=== PATIENT | male | born 1930 | race Caucasian/White ===

== ENCOUNTER 2016-11-26 21:22 | Emergency (ER) | payer MEDICARE, SELFPAY ==
[2016-11-26] MEDS ORDERED: DILTIAZEM HCL 125 MG in 0.9 % SODIUM CHLORIDE 100ML 100 ML IV SCH (21:45)
[2016-11-26] MEDS ORDERED: 0.9 % SODIUM CHLORIDE 1000ML 500 ML IV SCH (21:45)
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
[2016-11-26 21:53] LABS: BASO % 0.4 % (0-6); EOS % 6.3 % (0-6); GRAN % 67.5 % (47-80); HEMATOCRIT 35.2 % (42.0-52.0); HEMOGLOBIN 11.8 gm/dl (14.0-18.0); LYMPH % 16.4 % (16-45); MEAN CELL VOLUME 91.2 fl (81-97); MEAN CORPUSCULAR HGB CONC 33.5 g/dl (32-36); MEAN PLATELET VOLUME 9.6 fl (7.4-10.4); MONO % 9.4 % (0-9); PLATELET COUNT 249 K/uL (130-400); RED BLOOD COUNT 3.86 M/uL (4.40-5.70)
[2016-11-26] MEDS ORDERED: ASPIRIN 81 MG CHEWABLE TABLET PO ONE (21:55)
[2016-11-26 21:57] LABS: MEAN CORPUSCULAR HEMOGLOBIN 30.5 pg (27-33)
[2016-11-26 22:06] LABS: INR 1.05; PROTHROMBIN TIME (PATIENT) 11.3 SECONDS (9.5-12.1)
[2016-11-26 22:30] LABS: ALB/GLOB RATIO 1.1 (1.1-1.8); ALBUMIN 3.9 gm/dL (3.5-5.0); ALKALINE PHOSPHATASE 81 U/L (38-126); ALT/SGPT 31 U/L (21-72); ANION GAP 12.4 (7-16); AST/SGOT 16 U/L (17-59); BILIRUBIN,TOTAL 0.42 mg/dL (0.2-1.3); BLOOD UREA NITROGEN 14 mg/dL (9-20); CARBON DIOXIDE 25.6 mmol/L (22-30); CREATINE PHOSPHOKINASE 41 U/L (55-170); CREATININE 0.8 mg/dL (0.66-1.25); EST GLOMERULAR FILTRATION RATE > 60 ml/min; GLUCOSE,RANDOM 138 mg/dL (70-110); TOTAL PROTEIN 7.4 gm/dL (6.3-8.2)
[2016-11-26 22:32] LABS: CKMB 1.2 ug/L (0-6); TROPONIN I < 0.012 ng/mL (0.00-0.034)
--- NOTE | 2016-11-28 11:25 | CT ANGIOGRAM REPORT ---
EXAM: CT ANGIOGRAM CHEST CTA w contrast HISTORY: HYPERTENSION, DIFFICULTY BREATHING. TECHNIQUE: CTA of the chest was performed after intravenous administration of 80 mL of Omnipaque-350 contrast material. Sagittal and coronal MIP images were performed on an independent workstation. FINDINGS: There is no mass or filling defect to suggest pulmonary embolism. The heart and pericardium appears normal. There is paraseptal and centrilobular emphysematous change. There is fibrosis in the lung bases. There is extensive mediastinal and hilar lymphadenopathy. There is a round mass in the left lower lobe measuring 9 cm x 9 cm. There is an 18 mm spiculated lesion in the lingular segment. The visualized superior abdominal structures demonstrate aneurysmal dilatation of the descending thoracic aorta. There is a 4 cm mass in the right cardiophrenic angle. IMPRESSION: 1. NO CTA FINDINGS SUGGESTIVE OF PULMONARY EMBOLISM. 2. EXTENSIVE MEDIASTINAL AND HILAR LYMPHADENOPATHY. SUSPICIOUS LESIONS IN THE LEFT LOWER LOBE, LINGULAR SEGMENT, AND THE RIGHT CARDIOPHRENIC ANGLE. 3. SEVERE UNDERLYING CENTRILOBULAR EMPHYSEMA WITH FIBROSIS IN THE LUNG BASES. 4. FUSIFORM ABDOMINAL AORTIC ANEURYSM MEASURING 4.5 CM AT THE LEVEL OF THE RENAL ARTERIES. JOB NUMBER: [id number] [facility]
== END 2016-11-27 00:09 | disposition short-term general hospital (02) ==
LOC: ER 21:22
DX: I48.0 Paroxysmal atrial fibrillation (principal); R91.8 Other nonspecific abnormal finding of lung field; R06.00 Dyspnea, unspecified; I10 Essential (primary) hypertension; J44.9 Chronic obstructive pulmonary disease, unspecified; F17.210 Nicotine dependence, cigarettes, uncomplicated
CPT/HCPCS: 99285 ×2; 96365; 96366; 82550; 83605; 85025; 85610; 82553; 84484; 80053; 71275; 93005; 93010; Q9967; J7030

== ENCOUNTER 2016-12-06 04:35 | Inpatient (IN) | payer MEDICARE ==
[2016-12-06] MEDS ORDERED: ONDANSETRON HCL IV 4 MG/2 ML VIAL IVP ONE (04:39)
[2016-12-06] MEDS ORDERED: 0.9 % SODIUM CHLORIDE 1000ML 1,000 ML IV SCH (04:45)
[2016-12-06] MEDS ORDERED: MORPHINE SULFATE 5 MG/ML PFS IVP ONE (04:51)
[2016-12-06 04:53] LABS: BASO % 0.4 % (0-6); EOS % 2.4 % (0-6); GRAN % 78.7 % (47-80); HEMATOCRIT 33.3 % (42.0-52.0); HEMOGLOBIN 11.2 gm/dl (14.0-18.0); LYMPH % 10.1 % (16-45); MEAN CORPUSCULAR HEMOGLOBIN 30.6 pg (27-33); MEAN CORPUSCULAR HGB CONC 33.6 g/dl (32-36); MONO % 8.4 % (0-9); PLATELET COUNT 335 K/uL (130-400); RED BLOOD COUNT 3.66 M/uL (4.40-5.70); RED CELL DISTRIBUTION WIDTH 14.2 % (11.5-14.5); WHITE BLOOD COUNT W/O DIFF 10.6 K/uL (4.2-12.2)
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
[2016-12-06 05:05] LABS: ALBUMIN 3.9 gm/dL (3.5-5.0); ALKALINE PHOSPHATASE 89 U/L (38-126); ALT/SGPT 33 U/L (21-72); ANION GAP 7.3 (7-16); AST/SGOT 21 U/L (17-59); BILIRUBIN,TOTAL 0.77 mg/dL (0.2-1.3); BLOOD UREA NITROGEN 14 mg/dL (9-20); CARBON DIOXIDE 24.7 mmol/L (22-30); CREATININE 0.8 mg/dL (0.66-1.25); EST GLOMERULAR FILTRATION RATE > 60 ml/min; GLUCOSE,RANDOM 167 mg/dL (70-110); LIPASE 24 U/L (23-300); TOTAL PROTEIN 7.7 gm/dL (6.3-8.2)
[2016-12-06] MEDS ORDERED: MORPHINE SULFATE 5 MG/ML PFS IVP PRN (07:36)
[2016-12-06] MEDS: 0.9 % SODIUM CHLORIDE 1000ML 1,000 ML IV PRN ×2 (07:40→17:49)
[2016-12-06] MEDS: AMLODIPINE BESYLATE 5MG TAB PO SCH (09:42)
[2016-12-06] MEDS: ATORVASTATIN 20 MG TABLET PO SCH (09:43)
[2016-12-06] MEDS ORDERED: Non-Formulary MISC (Atorvastatin Calcium [Atorvastatin Calcium] 40 MG) PO SCH (10:00)
[2016-12-06] MEDS ORDERED: UMECLIDINIUM BROMIDE (INCRUSE) 62.5MCG IH SCH (10:00)
[2016-12-06] MEDS ORDERED: Non-Formulary MISC (Amlodipine Besylate [Norvasc] 10 MG) PO SCH (10:00)
[2016-12-06] MEDS ORDERED: AMIODARONE HCL 200 MG TABLET PO SCH (10:30)
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
[2016-12-06] MEDS: MORPHINE SULFATE 15 MG TABLET.ER PO SCH ×2 (11:38→21:32)
--- NOTE | 2016-12-06 15:34 | CT SCAN REPORT ---
EXAM: CT SCAN ABDOMEN/PELVIS W CONTRAST HISTORY: ABDOMINAL PAIN SINCE 2300 ON 12/05/2016. KNOWN LUNG MASS. TECHNIQUE: Contrast-enhanced helical CT examination of the abdomen and pelvis is performed including delayed images through the kidneys with 90 mL of Omnipaque-300 utilized. COMPARISON: CT abdomen and pelvis with contrast dated 04/28/2005. CT angiogram of the chest dated 11/26/2016. FINDINGS: There is redemonstration of a centrally necrotic mass in the left lower lobe. As visualized, this measures approximately 6.6 x 8.4 cm and is suspicious for malignancy. There is new postobstructive atelectasis/pneumonia surrounding this mass. Additionally, there is redemonstration of a spiculated nodule within the lateral aspect of the lingula measuring 1.3 x 0.9 cm. This is also suspicious for malignancy. Incompletely imaged is low-density adenopathy within the gloria and along the right anterior heart border. That along the right anterior heart border measures 2.9 x 4.3 cm, not significantly changed. This is consistent with lymph node metastasis. The heart is mildly enlarged. There is calcification of the aortic valve and diffuse atherosclerosis of the visualized right coronary artery. No new suspicious focal abnormality is demonstrated within the liver, spleen, pancreas, nor kidneys. Bilateral adrenal gland masses are redemonstrated when compared to the recent CT chest examination. That on the right measures 2.9 x 2.5 cm and that on the left measures 2.3 x 1.6 cm. These are new since the 2006 examination and are suspicious for metastatic disease. There is a soft tissue density nodule adjacent to the anterior margin of the gastric body measuring 1.6 x 1.7 cm. This is not seen on the prior CT abdomen and pelvis examination. Additionally, there is a small soft tissue density nodule adjacent to the lateral margin of the mid to upper left kidney measuring 1.2 x 1.2 cm. This is also not visualized on prior CT abdomen and pelvis examination. These nodules may represent metastatic disease. The gallbladder is surgically absent. No gross biliary ductal dilatation is seen. There is redemonstration of an aortobi-iliac endograft in place. No definite evidence of endo leak. The [place] intrarenal abdominal aorta measures 4.7 x 5.1 cm. This appears less pronounced than on the 2006 examination. No new pelvis mass, lymphadenopathy, or free pelvic fluid is seen. There is diverticulosis of the left colon without evidence of diverticulitis. No gross bowel dilatation or bowel wall thickening. No intrinsic urinary bladder abnormality is seen. No lytic or blastic bone lesion visualized. IMPRESSION: 1. REDEMONSTRATION OF A CENTRALLY NECROTIC MASS WITHIN THE LEFT LOWER LOBE, INCOMPLETELY IMAGED, CONSISTENT WITH MALIGNANCY. THERE IS NEW ASSOCIATED POSTOBSTRUCTIVE ATELECTASIS/PNEUMONIA WITHIN THE VISUALIZED LEFT LOWER LOBE. 2. BILATERAL HILAR ADENOPATHY, INCOMPLETELY IMAGED, WELL REDEMONSTRATION OF A RIGHT PERICARDIAL MASS CONSISTENT WITH METASTATIC DISEASE. 3. BILATERAL ADRENAL GLAND MASSES REDEMONSTRATED SUSPICIOUS FOR METASTATIC DISEASE. TWO SMALL SOFT TISSUE DENSITY NODULES WITHIN THE LEFT UPPER QUADRANT, DESCRIBED ABOVE. AGAIN, METASTATIC DISEASE IS CONSIDERED. 4. AORTOBI-ILIAC ENDOGRAFT IN PLACE WITHOUT EVIDENCE OF ENDO LEAK. NOT MENTIONED ABOVE IS REDEMONSTRATION OF ECTASIA OF THE RIGHT COMMON ILIAC ARTERY MEASURING UP TO 3.3 CM IN DIAMETER. 5. STATUS POST CHOLECYSTECTOMY. 6. DIVERTICULOSIS OF THE DISTAL COLON WITHOUT EVIDENCE OF DIVERTICULITIS. 7. NOT MENTIONED ABOVE IS A POSSIBLE NONOBSTRUCTING CALCULUS IN THE MID RIGHT KIDNEY VERSUS VASCULAR CALCIFICATION MEASURING 4.4 MM IN DIAMETER. JOB NUMBER: [id number] [facility]
[2016-12-06] MEDS: SPIRIVA INH SCH (16:45)
[2016-12-06] MEDS ORDERED: ACETAMINOPHEN 500 MG TABLET PO PRN (17:31)
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
[2016-12-06] MEDS: METOPROLOL SUCC 25 MG TAB.ER PO SCH (21:32)
[2016-12-07] MEDS: ONDANSETRON HCL IV 4 MG/2 ML VIAL IVP PRN (03:58)
[2016-12-07 06:30] LABS: HEMATOCRIT 33.3 % (42.0-52.0); MEAN CELL VOLUME 90.7 fl (81-97); MEAN PLATELET VOLUME 9.1 fl (7.4-10.4); PLATELET COUNT 296 K/uL (130-400); RED BLOOD COUNT 3.67 M/uL (4.40-5.70); WHITE BLOOD COUNT W/O DIFF 9.5 K/uL (4.2-12.2)
[2016-12-07 06:34] LABS: MEAN CORPUSCULAR HEMOGLOBIN 29.9 pg (27-33)
[2016-12-07 06:42] LABS: PLATELET ESTIMATE NORMAL (NORMAL)
[2016-12-07] MEDS: SPIRIVA INH SCH (09:26)
[2016-12-07] MEDS: MORPHINE SULFATE 15 MG TABLET.ER PO SCH ×2 (10:39→21:21)
[2016-12-07] MEDS: ATORVASTATIN 20 MG TABLET PO SCH (10:40)
[2016-12-07] MEDS: RIVAROXABAN 15 MG TABLET PO SCH (10:41)
[2016-12-07] MEDS: AMLODIPINE BESYLATE 5MG TAB PO SCH (10:42)
[2016-12-07] MEDS: AMIODARONE HCL 200 MG TABLET PO SCH (10:42)
--- NOTE | 2016-12-07 11:15 | ULTRASOUND REPORT ---
EXAM: ULTRASOUND OF THE ABDOMEN COMPLETE HISTORY: ABDOMINAL PAIN. TECHNIQUE: Routine ultrasound examination of the abdomen was performed. Comparison: CT of the abdomen and pelvis with contrast dated 12/06/16 at 05:31. FINDINGS: The pancreatic body is visualized and normal in appearance. The pancreatic head and tail are obscured by overlying bowel gas. The pancreatic duct is visualized and is within the limits of normal in caliber. There is diffuse atherosclerosis. There is aneurysmal dilatation of the infrarenal abdominal aorta measuring 4.3 cm in maximum AP diameter and 5.2 cm in maximum transverse diameter of the aortobiiliac endograft demonstrated on prior day CT examination The intrahepatic IVC is patent. The liver is homogeneous in echotexture and there is no intra or extrahepatic biliary ductal dilatation with the common hepatic duct measuring 5.7 mm. The gallbladder is surgically absent. The spleen is not diagnostically visualized due to overlying bowel gas. Screening evaluation of the kidneys does not demonstrate hydronephrosis nor mass with the right kidney measuring 11.4 cm in length and the left kidney measuring 9.5 cm in length. There is moderate distention of the urinary bladder. The portal vein appears patent. IMPRESSION: 1. EXAM LIMITED BY BOWEL GAS WITH THE HEAD AND TAIL OF THE PANCREAS NOT DIAGNOSTICALLY VISUALIZED. THE SPLEEN IS ALSO NOT DIAGNOSTICALLY VISUALIZED DUE TO POOR SONOGRAPHIC WINDOW. 2. STATUS POST CHOLECYSTECTOMY. NO BILIARY DUCTAL DILATATION. NO HYDRONEPHROSIS. JOB NUMBER: [id number] [facility]
[2016-12-07] MEDS ORDERED: PANTOPRAZOLE SODIUM 40 MG TABLET PO ONE ×2 (11:16→16:15)
--- NOTE | 2016-12-07 13:15 | Physician Progress Note ---
Subjective - Date Date of Physician Progress Note: 12/07/16 - Subjective Location: Abdomen Radiation: Non-Radiating Severity scale (1-10): 5 Quality: Aching Consistency: Constant Improves with: Medication Associated symptoms: Denies other symptoms Objective - Multidiciplinary Team Multidiciplinary Team: OT, PT, Social Work - Vital Signs Vital Signs: Vital Signs - Last 24 Hrs Temp Pulse Pulse Pulse Resp BP BP 12/07/16 11:20 98.8 F 77 18 141/79 12/07/16 09:27 86 16 12/07/16 08:08 20 12/07/16 06:33 12/07/16 06:00 12/07/16 05:00 98.0 F 70 18 129/71 12/06/16 22:50 98.7 F 102 H 22 117/69 12/06/16 21:00 73 16 12/06/16 20:30 134 H 18 12/06/16 19:05 97.5 F L 79 19 124/71 12/06/16 16:46 84 18 Pulse Ox 12/07/16 11:20 79 L 12/07/16 09:27 92 L 12/07/16 08:08 12/07/16 06:33 96 12/07/16 06:00 84 L 12/07/16 05:00 95 12/06/16 22:50 94 L 12/06/16 21:00 12/06/16 20:30 96 12/06/16 19:05 95 12/06/16 16:46 - General General Appearance: Alert, Oriented x3, Cooperative, Moderate distress Limitations: No limitations - Head Head exam: Atraumatic, Normocephalic, Normal inspection Head exam detail: negative: Abrasion, Contusion, Frankel's sign, General tenderness, Hematoma, Laceration - Eye Eye exam: Normal appearance. negative: Conjunctival injection, Periorbital swelling, Periorbital tenderness, Scleral icterus - ENT ENT exam: Mucous membranes dry Ear exam: negative: Auricular hematoma, Auricular trauma Nasal Exam: negative: Active bleeding, Discharge, Dried blood, Sinus tenderness Mouth exam: negative: Drooling, Laceration, Tongue elevation - Neck Neck exam: Normal inspection. negative: Tenderness, Thyromegaly - Respiratory Respiratory exam: Normal lung sounds bilaterally. negative: Rhonchi, Stridor, Wheezes - Cardiovascular Cardiovascular Exam: Regular rate, Normal rhythm, Normal heart sounds - GI/Abdominal GI/Abdominal exam: Soft, Hypoactive bowel sounds, Other (no tenderness on examination of the R abdomen/thorax. ). negative: Distended, Rebound, Rigid, Tenderness - Rectal Rectal exam: Deferred - exam: Deferred - Extremities Extremities exam: Normal inspection. negative: Calf tenderness, Pedal edema, Tenderness - Back Back exam: Denies: CVA tenderness (R), CVA tenderness (L) - Neurological Neurological exam: Alert, Oriented X3. negative: Motor sensory deficit - Psychiatric Psychiatric exam: Normal affect, Normal mood - Skin Skin exam: negative: Abrasion Type of lesion: negative: abrasion Assessment and Plan - Assessment and Plan (1) Abdominal pain Plan: - CT abdomen/pelvis not suggestive of acute abdomen. US 12/07/16 was als negative for any acute abdominal pathology. - FOBT pending, resume xarelto dosing. - pain control with MS Contin 15mg BID, Tylenol 500mg PRN, docusate/senna, Protonix 40mg PO QD ordered. - currently tolerating clear liquids, patient encouraged to increase PO intake. - will consult GI is symptoms persist on PPI therapy. Current Visit: Yes Status: Acute Qualifiers: Abdominal location: right upper quadrant Qualified Code(s): R10.11 - Right upper quadrant pain Base Code: R10.9 - UNSPECIFIED ABDOMINAL PAIN (2) Atrial fibrillation Plan: - patient currently in atrial fibrillation on examination. ECG in ED showed A fib. + LBBB w/o any acute ischemic changes. - Toprolol XL 12.5mg, amiodarone 400mg QD, - CHADsVASC 4 , on Xarelto 15mg QD resumed this am. - PACs noted on telemetry, pt seen by cardiology yesterday and will reduce amiodarone as per recommendation. Current Visit: Yes Status: Acute Qualifiers: Atrial fibrillation type: chronic Qualified Code(s): I48.2 - Chronic atrial fibrillation Base Code: I48.91 - UNSPECIFIED ATRIAL FIBRILLATION (3) COPD (chronic obstructive pulmonary disease) Plan: - PFTs show FEV1 61%, mild obstructive defect. - titrate oxygen to keep sats > 92% - Albuterol nebs PRN, incentive spirometry - smoking cessation advised Current Visit: No Status: Acute Base Code: J44.9 - CHRONIC OBSTRUCTIVE PULMONARY DISEASE, UNSPECIFIED (4) Hypercholesteremia Plan: stable on Atrovastatin 40mg QD Current Visit: Yes Status: Acute Base Code: E78.00 - PURE HYPERCHOLESTEROLEMIA, UNSPECIFIED (5) Full code status Plan: Patient is full code at this time. I will discuss resuscitation code with patient and family. Current Visit: Yes Status: Acute Base Code: Z78.9 - OTHER SPECIFIED HEALTH STATUS - Disposition Disposition: Patient continues to complain of vague abdominal pain. We have initiated a trial of PPIs and will consult GI for recommendations due to his persistent symptoms. I have spoken to the patient's sons this afternoon and provided them updates as to their father's condition and plans. PT/OT evaluated: recs appreciated. SW to discuss home care nurse with family. Results - Labs Result Diagrams: 12/07/16 06:15 12/07/16 06:15 Labs Last 24 Hours: Laboratory Results - last 24 hr 12/07/16 12/07/16 06:15 06:15 WBC 9.5 RBC 3.67 L Hgb 11.0 L Hct 33.3 L MCV 90.7 MCH 29.9 MCHC 33.0 RDW 14.0 Plt Count 296 MPV 9.1 Neutrophils % 86.0 H Band Neutrophils % 1.0 Eosinophils % Not Reportable Basophils % Not Reportable Lymphocytes 8.0 L Monocytes 2.0 Platelet Estimate Normal RBC Morphology Normal Eosinophil Count 3.0 Sodium 131 L Potassium 3.8 Chloride 93 L Carbon Dioxide 25.0 Anion Gap 13.0 DVT/PE Assessment - Risk for VTE Risk for VTE: No Risk Level: High (Pt has A fib: On Xarelto 15mg QD) Risk Assessment Date: 12/06/16 Risk Assessment Time: 12:29 VTE Orders Placed or Will Be Placed: Yes - Active Medicaitons Current Medications: Current Medications Acetaminophen (Tylenol 500mg Tab) 500 mg PO Q4H PRN PRN Reason: Abdominal Pain Last Admin: 12/06/16 17:35 Dose: 500 mg Amiodarone HCl (Pacerone) 200 mg PO DAILY [facility] Last Admin: 12/07/16 10:42 Dose: 200 mg Amlodipine Besylate (Norvasc) 10 mg PO DAILY [facility] Last Admin: 12/07/16 10:42 Dose: 10 mg Atorvastatin Calcium (Lipitor) 40 mg PO DAILY [facility] Last Admin: 12/07/16 10:40 Dose: 40 mg Sodium Chloride () 1,000 mls @ 100 mls/hr IV .Q10H PRN PRN Reason: LARGE VOLUME IV Last Admin: 12/06/16 17:49 Dose: 100 mls/hr Metoprolol Succinate (Toprol Xl) 12.5 mg PO QHS [facility] Last Admin: 12/06/16 21:32 Dose: 12.5 mg Morphine Sulfate (Ms Contin) 15 mg PO BID [facility] Last Admin: 12/07/16 10:39 Dose: 15 mg Ondansetron HCl (Zofran) 4 mg IVP Q4H PRN PRN Reason: NAUSEA Last Admin: 12/07/16 03:58 Dose: 4 mg Patient Own Med: (Spiriva) 1 each INH DAILY [facility] Last Admin: 12/07/16 09:26 Dose: 1 each Rivaroxaban (Xarelto) 15 mg PO DAILY [facility] Last Admin: 12/07/16 10:41 Dose: 15 mg AMI Plan - Labs Result Diagrams: 12/07/16 06:15 12/07/16 06:15
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
[2016-12-07] MEDS: METOPROLOL SUCC 25 MG TAB.ER PO SCH (21:21)
[2016-12-08 05:23] LABS: BASO % 0.1 % (0-6); EOS % 2.3 % (0-6); GRAN % 79.2 % (47-80); HEMATOCRIT 33.6 % (42.0-52.0); HEMOGLOBIN 11.5 gm/dl (14.0-18.0); LYMPH % 8.8 % (16-45); MEAN CELL VOLUME 89.4 fl (81-97); MEAN CORPUSCULAR HEMOGLOBIN 30.5 pg (27-33); MEAN CORPUSCULAR HGB CONC 34.2 g/dl (32-36); MEAN PLATELET VOLUME 8.9 fl (7.4-10.4); MONO % 9.6 % (0-9); PLATELET COUNT 282 K/uL (130-400); RED BLOOD COUNT 3.76 M/uL (4.40-5.70); RED CELL DISTRIBUTION WIDTH 13.8 % (11.5-14.5)
[2016-12-08] MEDS: ONDANSETRON HCL IV 4 MG/2 ML VIAL IVP PRN (05:23)
[2016-12-08] MEDS: MORPHINE SULFATE 5 MG/ML PFS IVP PRN (05:23)
[2016-12-08 05:36] LABS: ALBUMIN 3.2 g/dL (4.0-5.0); ALKALINE PHOSPHATASE 78 U/L (40-129); ALT/SGPT 11 U/L (<41); AST/SGOT 14 U/L (10.0-50.0); BLOOD UREA NITROGEN 14.9 mg/dL (17.4-49.2); CKMB 3.2 ng/mL (<6.73); CREATININE 0.4 mg/dL (0.7-1.2); EST GLOMERULAR FILTRATION RATE > 60 mL/min; GLUCOSE,RANDOM 113 mg/dL (74-109); TOTAL PROTEIN 6.5 g/dL (6.6-8.7); TROPONIN I < 0.30 ng/mL (0.00-0.300)
[2016-12-08] MEDS: PANTOPRAZOLE SODIUM 40 MG TABLET PO SCH (06:13)
--- NOTE | 2016-12-08 08:06 | RADIOLOGY REPORT ---
EXAM: PORTABLE CHEST HISTORY: CHEST PAIN. TECHNIQUE: A single mobile semi-erect view of the chest was obtained. Comparison: CT angiogram of the chest dated 11/26/16. Two view chest radiographic examination dated 11/12/16. CT of the abdomen and pelvis with contrast dated 12/06/16. FINDINGS: The cardiac silhouette projects mildly enlarged with borderline pulmonary venous hypertension. The thoracic aorta is tortuous and atherosclerotic. A large mass is again noted at the level of the left hilum/ perihilar region and there has been interval worsening or air space disease in the left lung base consistent with atelectasis or infiltrate. Minor patchy opacities in the right base are now identified superimposed on chronic interstitial change consistent with atelectasis or less likely infiltrate. No gross costophrenic angle blunting or pneumothorax. IMPRESSION: 1. CARDIOMEGALY WITH BORDERLINE PULMONARY VENOUS HYPERTENSION. 2. LARGE MASS REDEMONSTRATED IN THE LEFT PERIHILAR REGION WITH INTERVAL WORSENING OF AIR SPACE DISEASE IN THE LEFT BASE CONSISTENT WITH ATELECTASIS OR INFILTRATE. 3. NEW MINOR PATCHY OPACITIES WITHIN THE RIGHT BASE SUPERIMPOSED ON CHRONIC INTERSTITIAL CHANGES CONSISTENT WITH ATELECTASIS OR LESS LIKELY INFILTRATE. JOB NUMBER: [id number] MTDD
[2016-12-08] MEDS: SPIRIVA INH SCH (09:18)
[2016-12-08] MEDS: MORPHINE SULFATE 15 MG TABLET.ER PO SCH ×2 (09:31→22:23)
[2016-12-08] MEDS: AMIODARONE HCL 200 MG TABLET PO SCH (09:32)
[2016-12-08] MEDS: ATORVASTATIN 20 MG TABLET PO SCH (09:32)
[2016-12-08] MEDS: AMLODIPINE BESYLATE 5MG TAB PO SCH (09:32)
[2016-12-08] MEDS: RIVAROXABAN 15 MG TABLET PO SCH (09:32)
[2016-12-08] MEDS: 0.9 % SODIUM CHLORIDE 1000ML 1,000 ML IV PRN ×2 (11:38→22:33)
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
--- NOTE | 2016-12-08 15:42 | Physician Progress Note ---
Subjective - Date Date of Physician Progress Note: 12/09/16 - Subjective Location: Abdomen Severity scale (1-10): 5 Quality: Aching Consistency: Intermittent Improves with: Medication Worsens with: None Objective - Multidiciplinary Team Multidiciplinary Team: OT, PT, Social Work - Vital Signs Vital Signs: Vital Signs - Last 24 Hrs Temp Pulse Pulse Pulse Pulse Resp BP 12/08/16 14:50 97.5 F L 98 H 16 102/68 12/08/16 10:00 97.6 F 104 H 18 103/65 12/08/16 09:23 70 15 12/08/16 09:22 70 15 12/08/16 09:00 90 18 12/08/16 06:00 89 22 128/79 12/08/16 05:00 98.7 F 96 H 22 94/56 12/07/16 21:30 98.8 F 80 18 135/78 12/07/16 21:00 73 73 18 Pulse Ox 12/08/16 14:50 94 L 12/08/16 10:00 96 12/08/16 09:23 91 L 12/08/16 09:22 91 L 12/08/16 09:00 12/08/16 06:00 98 12/08/16 05:00 91 L 12/07/16 21:30 95 12/07/16 21:00 - General General Appearance: Alert, Oriented x3, Cooperative, Moderate distress Limitations: No limitations - Head Head exam: Atraumatic, Normocephalic, Normal inspection Head exam detail: negative: Abrasion, Contusion, Frankel's sign, General tenderness, Hematoma, Laceration - Eye Eye exam: Normal appearance. negative: Conjunctival injection, Periorbital swelling, Periorbital tenderness, Scleral icterus - ENT ENT exam: Mucous membranes dry Ear exam: negative: Auricular hematoma, Auricular trauma Nasal Exam: negative: Active bleeding, Discharge, Dried blood, Sinus tenderness Mouth exam: negative: Drooling, Laceration, Tongue elevation - Neck Neck exam: Normal inspection. negative: Tenderness, Thyromegaly - Respiratory Respiratory exam: Normal lung sounds bilaterally. negative: Rhonchi, Stridor, Wheezes - Cardiovascular Cardiovascular Exam: Regular rate, Normal rhythm, Normal heart sounds - GI/Abdominal GI/Abdominal exam: Soft, Hypoactive bowel sounds, Other (no tenderness on examination of the R abdomen/thorax. ). negative: Distended, Rebound, Rigid, Tenderness - Rectal Rectal exam: Deferred - exam: Deferred - Extremities Extremities exam: Normal inspection. negative: Calf tenderness, Pedal edema, Tenderness - Back Back exam: Denies: CVA tenderness (R), CVA tenderness (L) - Neurological Neurological exam: Alert, Oriented X3. negative: Motor sensory deficit - Psychiatric Psychiatric exam: Normal affect, Normal mood - Skin Skin exam: negative: Abrasion Type of lesion: negative: abrasion Assessment and Plan - Assessment and Plan (1) Abdominal pain Plan: - CT abdomen/pelvis not suggestive of acute abdomen. US 12/07/16 was also negative for any acute abdominal pathology. - on MS Contin 15mg BID, morphine 4mg IVP Q4H, docusate/senna, Protonix 40mg PO QD. - currently tolerating full liquids. 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 Current Visit: Yes Status: Acute Qualifiers: Abdominal location: right upper quadrant Qualified Code(s): R10.11 - Right upper quadrant pain Base Code: R10.9 - UNSPECIFIED ABDOMINAL PAIN (2) Atrial fibrillation Plan: - patient currently in atrial fibrillation on examination. ECG in ED showed A fib. + LBBB w/o any acute ischemic changes. - Toprolol XL 12.5mg, amiodarone 200mg BID, - CHADsVASC 4 , on Xarelto 15mg QD - ECG shows a fib w/ variable conduction and underlying LBBB. Current Visit: Yes Status: Acute Qualifiers: Atrial fibrillation type: chronic Qualified Code(s): I48.2 - Chronic atrial fibrillation Base Code: I48.91 - UNSPECIFIED ATRIAL FIBRILLATION (3) COPD (chronic obstructive pulmonary disease) Plan: - PFTs show FEV1 61%, mild obstructive defect. - titrate oxygen to keep sats > 92% - Albuterol nebs PRN, incentive spirometry - smoking cessation Current Visit: No Status: Acute Base Code: J44.9 - CHRONIC OBSTRUCTIVE PULMONARY DISEASE, UNSPECIFIED (4) Hypercholesteremia Current Visit: Yes Status: Acute Base Code: E78.00 - PURE HYPERCHOLESTEROLEMIA, UNSPECIFIED (5) Full code status Plan: Patient is full code at this time. I will discuss resuscitation code with patient and family. Current Visit: Yes Status: Acute Base Code: Z78.9 - OTHER SPECIFIED HEALTH STATUS - Disposition Disposition: I have spoken to the patient's family this afternoon and provided them updates as to their father's condition and plans. His daughter has been made aware of a preliminary diagnosis of adenocarcinoma of the lung by his ultrasonic welding machine operator Dr. Leo champagne at [facility] and arrangements have been made for oncoology f/u there. In the meantime she would like for her father to [facility] to [facility] before going home as he will need ongoing support once discharged. Possible D/C today if bed available. Results - Labs Result Diagrams: 12/08/16 05:17 12/08/16 05:17 Labs Last 24 Hours: Laboratory Results - last 24 hr 12/08/16 12/08/16 12/08/16 05:13 05:17 05:17 WBC 10.0 RBC 3.76 L Hgb 11.5 L Hct 33.6 L MCV 89.4 MCH 30.5 MCHC 34.2 RDW 13.8 Plt Count 282 MPV 8.9 Gran % 79.2 Lymphocytes % 8.8 L Monocytes % 9.6 H Eosinophils % 2.3 Basophils % 0.1 Sodium 128 L Potassium 3.8 Chloride 92 L Carbon Dioxide 23.0 Anion Gap 13.0 BUN 14.9 L Creatinine 0.4 L Estimated GFR > 60 Random Glucose 113 H Calcium 8.1 L Total Bilirubin 0.40 AST 14 ALT 11 Alkaline Phosphatase 78 CK-MB (CK-2) Cancelled 3.2 Troponin I < 0.30 Total Protein 6.5 L Albumin 3.2 L Globulin 3.3 Albumin/Globulin Ratio 1.0 L DVT/PE Assessment - Risk for VTE Risk for VTE: No Risk Level: High (Pt has A fib: On Xarelto 15mg QD) Risk Assessment Date: 12/06/16 Risk Assessment Time: 12:29 VTE Orders Placed or Will Be Placed: Yes - Active Medicaitons Current Medications: Current Medications Acetaminophen (Tylenol 500mg Tab) 500 mg PO Q4H PRN PRN Reason: Abdominal Pain Last Admin: 12/06/16 17:35 Dose: 500 mg Amiodarone HCl (Pacerone) 200 mg PO DAILY AJ Last Admin: 12/08/16 09:32 Dose: 200 mg Amlodipine Besylate (Norvasc) 10 mg PO DAILY [facility] Last Admin: 12/08/16 09:32 Dose: 10 mg Atorvastatin Calcium (Lipitor) 40 mg PO DAILY [facility] Last Admin: 12/08/16 09:32 Dose: 40 mg Sodium Chloride () 1,000 mls @ 100 mls/hr IV .Q10H PRN PRN Reason: LARGE VOLUME IV Last Admin: 12/08/16 11:38 Dose: 100 mls/hr Metoprolol Succinate (Toprol Xl) 12.5 mg PO QHS [facility] Last Admin: 12/07/16 21:21 Dose: 12.5 mg Morphine Sulfate (Ms Contin) 15 mg PO BID [facility] Last Admin: 12/08/16 09:31 Dose: 15 mg Morphine Sulfate (Morphine Sulfate) 2 mg IVP Q4HR PRN PRN Reason: Pain - Moderate (5-7) Stop: 12/15/16 05:16 Last Admin: 12/08/16 05:23 Dose: 2 mg Ondansetron HCl (Zofran) 4 mg IVP Q4H PRN PRN Reason: NAUSEA Last Admin: 12/08/16 05:23 Dose: 4 mg [facility]opraz[facility]) [facility] Last Admin: 12/08/16 06:13 Dose: 40 mg Patient Own Med: (Spiriva) 1 each INH DAILY [facility] Last Admin: 12/08/16 09:18 Dose: 1 each Rivaroxaban (Xarelto) 15 mg PO DAILY [facility] Last Admin: 12/08/16 09:32 Dose: 15 mg AMI Plan - Labs Result Diagrams: 12/08/16 05:17 12/08/16 05:17
--- NOTE | 2016-12-08 17:26 | Physical Therapy Tx Note ---
Physical Therapy Tx Note - Treatment Note Tolerated: Fair Total Time Spent With Patient: 15 Physical Therapy Tx Note: Detail (Patient was sidelying in bed sleeping when [employer] arrived. Patient states not feeling well. Patient transferred sit to supine independently. Patient transferred sit to and from stand CGA x1. Patient ambulated 62 feet without assistive device pulling 4L portable oxygen CGA x1 assist needed to propel IV pole. Patient transferred sit to supine independently. Patient declined further exercises. Patient was left sidelying in bed with call light with 4L oxygen, IV, and call light within reach.) Physical Therapy Problem List: Detail (1) Moderate risk for fall as measured by Tinetti Balance Assessment Tool. 2) Decreased ability to complete sustained physical activity.) Physical Therapy Goals: 1) Improve the patient's balance using the Tinetti Assessment Tool by 3 to 4 points. 2) The patient will ambulate with or without assistive device community distances with normal gait pattern. 3) The patient will tolerate 20 to 30 minutes of physical activity with one rest period. Prognosis: Good Physical Therapy Plan: PT one time a day M-F for ambulation , muscular endurance exercises and balance exercises.
[2016-12-08] MEDS: METOPROLOL SUCC 25 MG TAB.ER PO SCH (22:24)
[2016-12-08] MEDS: 0.9 % SODIUM CHLORIDE 1000ML 500 ML IV ONE (23:10)
[2016-12-09] MEDS: PANTOPRAZOLE SODIUM 40 MG TABLET PO SCH (06:22)
[2016-12-09] MEDS: AMIODARONE HCL 200 MG TABLET PO SCH (09:35)
[2016-12-09] MEDS: ATORVASTATIN 20 MG TABLET PO SCH (09:35)
[2016-12-09] MEDS: AMLODIPINE BESYLATE 5MG TAB PO SCH (09:35)
[2016-12-09] MEDS: MORPHINE SULFATE 15 MG TABLET.ER PO SCH ×2 (09:36→22:15)
[2016-12-09] MEDS: RIVAROXABAN 15 MG TABLET PO SCH (09:36)
[2016-12-09] MEDS: SPIRIVA INH SCH (10:07)
[2016-12-09] MEDS: 0.9 % SODIUM CHLORIDE 1000ML 1,000 ML IV PRN (19:07)
[2016-12-09] MEDS: 0.9 % SODIUM CHLORIDE 1000ML 500 ML IV ONE (19:51)
[2016-12-09] MEDS: METOPROLOL SUCC 25 MG TAB.ER PO SCH (22:15)
[2016-12-10] MEDS: MORPHINE SULFATE 5 MG/ML PFS IVP PRN (01:30)
[2016-12-10] MEDS: 0.9 % SODIUM CHLORIDE 1000ML 1,000 ML IV PRN (06:40)
[2016-12-10] MEDS: PANTOPRAZOLE SODIUM 40 MG TABLET PO SCH (06:40)
[2016-12-10] MEDS: AMIODARONE HCL 200 MG TABLET PO SCH (09:56)
[2016-12-10] MEDS: RIVAROXABAN 15 MG TABLET PO SCH (09:56)
[2016-12-10] MEDS: MORPHINE SULFATE 15 MG TABLET.ER PO SCH (09:56)
[2016-12-10] MEDS: ATORVASTATIN 20 MG TABLET PO SCH (09:56)
[2016-12-10] MEDS: AMLODIPINE BESYLATE 5MG TAB PO SCH (09:57)
[2016-12-10] MEDS: SPIRIVA INH SCH (10:02)
--- NOTE | 2016-12-10 11:26 | Discharge Summary ---
Providers Discharge Summary Date: 12/10/16 Date of admission: 12/06/16 07:25 Attending physician: JU SLOAN Primary care physician: CASSIE JACKSON D.O. 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?: Ricci Comment: Devi Physical Exam - Vital Signs Vital Signs: Vital Signs - Last 24 Hrs Temp Pulse Pulse Pulse Pulse Resp BP 12/10/16 10:03 75 19 12/10/16 10:00 97.6 F 90 18 108/54 12/10/16 08:37 113 H 113 H 20 12/10/16 06:00 97.4 F L 102 H 20 104/71 12/10/16 01:33 97.9 F 84 20 95/64 12/09/16 22:00 97.8 F 100 H 20 113/72 12/09/16 21:00 100 H 20 12/09/16 18:00 97.9 F 94 H 18 116/69 12/09/16 14:00 98.0 F 82 18 106/62 Pulse Ox 12/10/16 10:03 95 12/10/16 10:00 93 L 12/10/16 08:37 12/10/16 06:00 92 L 12/10/16 01:33 90 L 12/09/16 22:00 94 L 12/09/16 21:00 12/09/16 18:00 93 L 12/09/16 14:00 91 L - General General Appearance: Alert, Oriented x3, Cooperative, Moderate distress Limitations: No limitations - Head Head exam: Atraumatic, Normocephalic, Normal inspection Head exam detail: negative: Abrasion, Contusion, Frankel's sign, General tenderness, Hematoma, Laceration - Eye Eye exam: Normal appearance. negative: Conjunctival injection, Periorbital swelling, Periorbital tenderness, Scleral icterus - ENT ENT exam: Mucous membranes dry Ear exam: negative: Auricular hematoma, Auricular trauma Nasal Exam: negative: Active bleeding, Discharge, Dried blood, Sinus tenderness Mouth exam: negative: Drooling, Laceration, Tongue elevation - Neck Neck exam: Normal inspection. negative: Tenderness, Thyromegaly - Respiratory Respiratory exam: Normal lung sounds bilaterally. negative: Rhonchi, Stridor, Wheezes - Cardiovascular Cardiovascular Exam: Normal rhythm, Normal heart sounds. negative: Regular rate (the patient has paroxyms of atrial fibrillation.) - GI/Abdominal GI/Abdominal exam: Soft, Hypoactive bowel sounds, Other (no tenderness on examination of the R abdomen/thorax. ). negative: Distended, Rebound, Rigid, Tenderness - Rectal Rectal exam: Deferred - exam: Deferred - Extremities Extremities exam: Normal inspection. negative: Calf tenderness, Pedal edema, Tenderness - Back Back exam: Denies: CVA tenderness (R), CVA tenderness (L) - Neurological Neurological exam: Alert, Oriented X3. negative: Motor sensory deficit - Psychiatric Psychiatric exam: Normal affect, Normal mood - Skin Skin exam: negative: Abrasion Type of lesion: negative: abrasion Hospitalization - Hospitalization Admission Diagnosis: Abdominal pain. Atrial Fibrillation. Nausea/vomiting. Lung lesion - Problem List/Discharge Diagnosis (1) Abdominal pain Plan: - CT abdomen/pelvis not suggestive of acute abdomen. US 12/07/16 was also negative for any acute abdominal pathology. - on MS Contin 15mg BID, morphine 4mg IVP Q4H, docusate/senna, Protonix 40mg PO QD. - currently tolerating full liquids. 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 Status: Acute Discharge Diagnosis: Abdominal location: right upper quadrant Qualified Code(s): R10.11 - Right upper quadrant pain Base Code: R10.9 - UNSPECIFIED ABDOMINAL PAIN Narrative Support Text: Pain likely referred from thoracic area as there is no clear GI source (2) Atrial fibrillation Plan: - in sinus at this time . ECG in ED showed A fib. + LBBB w/o any acute ischemic changes. - Toprolol XL 12.5mg, amiodarone 200mg BID - CHADsVASC 4 , on Xarelto 15mg QD - ECG shows a fib w/ variable conduction and underlying LBBB. Status: Acute Discharge Diagnosis: Atrial fibrillation type: chronic Qualified Code(s): I48.2 - Chronic atrial fibrillation Base Code: I48.91 - UNSPECIFIED ATRIAL FIBRILLATION (3) COPD (chronic obstructive pulmonary disease) Status: Chronic Discharge Diagnosis: COPD type: emphysema Base Code: J44.9 - CHRONIC OBSTRUCTIVE PULMONARY DISEASE, UNSPECIFIED (4) Hypercholesteremia Status: Chronic Base Code: E78.00 - PURE HYPERCHOLESTEROLEMIA, UNSPECIFIED (5) Full code status Plan: The patient has an advanced directive which notes his daughter and son as POA. The patient also wants resuscitation in the event of cardiac or respiratory arrest but does not want a prolongation of life via support measures. Status: Acute Base Code: Z78.9 - OTHER SPECIFIED HEALTH STATUS - Disposition I have spoken to the patient's family this morning and they are agreeable to a swing bed until the outpatient services can accomodate further workup for his lung ca. - Hospitalization Course Disposition: Moved to Swing Bed Hospital Course: Mr. Cullen is an 86 y/o male who presents with acute abdominal/thoracic pain which has been intermittent and ongoing for the past 2 weeks. He has always had some abdominal discomfort due to GERD but symptoms have progressed and he has had 20lb weight loss and loss of appetite over the past 4-5 months. On presentation to the ED the patient had severe abdominal tenderness and had complete loss of appetite. Abdominal CT and US showed stable AAA graft and no acute abdominal findings. The patient was started on Morphine IV, Nacl 0.9% 100mL/hr and PPI. Initially there was suspiscion for acute GI bleed due to xarelto use but the patient remained hemodynamically stable throughout. The patient has a recent diagnosis of atrial fibrillation w/ a high CHADSVASc2 score and he was most recently started on xarelto for emboli prevention and amiodarone for better rate control. Procedures: Imaging and X-Rays 12/07/16 07:30 ABDOMEN, COMPLETE [US] Stat 12/08/16 05:11 CHEST AP or PA ONLY [RAD] Stat Cardiology Procedures 12/08/16 04:42 EKG NOW Abnormal Labs: Abnormal Lab Results 12/07/16 12/07/16 12/08/16 Range/Units 06:15 06:15 05:17 RBC 3.67 L (4.40-5.70) M/uL Hgb 11.0 L (14.0-18.0) gm/dl Hct 33.3 L (42.0-52.0) % Neutrophils % 86.0 H (47-80) % Lymphocytes % (16-45) % Monocytes % (0-9) % Lymphocytes 8.0 L (16-45) % Sodium 131 L 128 L (136-145) mmol/L Chloride 93 L 92 L (98-107) mmol/L BUN 14.9 L (17.4-49.2) mg/dL Creatinine 0.4 L (0.7-1.2) mg/dL Random Glucose 113 H (74-109) mg/dL Calcium 8.1 L (8.8-10.2) mg/dL Total Protein 6.5 L (6.6-8.7) g/dL Albumin 3.2 L (4.0-5.0) g/dL Albumin/Globulin Ratio 1.0 L (1.1-1.8) 12/08/16 Range/Units 05:17 RBC 3.76 L (4.40-5.70) M/uL Hgb 11.5 L (14.0-18.0) gm/dl Hct 33.6 L (42.0-52.0) % Neutrophils % (47-80) % Lymphocytes % 8.8 L (16-45) % Monocytes % 9.6 H (0-9) % Lymphocytes (16-45) % Sodium (136-145) mmol/L Chloride (98-107) mmol/L BUN (17.4-49.2) mg/dL Creatinine (0.7-1.2) mg/dL Random Glucose (74-109) mg/dL Calcium (8.8-10.2) mg/dL Total Protein (6.6-8.7) g/dL Albumin (4.0-5.0) g/dL Albumin/Globulin Ratio (1.1-1.8) Condition at Discharge: (2) Stable VTE Discharge VTE Reason For No Overlap Therapy: Not Indicated Discharge Medications - Discharge Medications Home Medications: Ambulatory Orders Amlodipine Besylate [Norvasc] 10 mg PO DAILY 09/09/13 [Last Taken 1 Day Ago ~] Metoprolol Succinate [Toprol Xl] 12.5 mg PO QHS #30 tab.er.24h 05/21/14 [Last Taken 1 Day Ago ~01/23/15] Tiotropium [place] [Spiriva] 1 cap INH RESP.DAILY cap.w[facility]dev 01/28/15 [Last Taken Unknown] Atorvastatin Calcium 40 mg PO DAILY 11/26/16 [Last Taken Unknown] Amiodarone HCl [Pacerone] 200 mg PO BID 12/06/16 [Last Taken Unknown] Rivaroxaban [Xarelto] 15 mg PO DAILY 12/06/16 [Last Taken Unknown] Discharge Plan - Discharge Instructions Activity at Discharge: Resume Usual Activities As Tolerated Diet at Discharge: Regular Diet Quality Measures - Quality Measures Quality Measures: Atrial Fibrillation & Atrial Flutter: Chronic Anticoagulation Therapy, Advance Directives, Documentation of Current Medications in Medical Record, Elder Maltreatment Screen and Follow-Up Plan, Screening for High Blood Pressure and F/U Documented - Current Medications Quality Measure: Measure #130: Documentation of Current Medications Documentation of Current Medications: <Current Medications Documented/Reviewed> [G8461] - Blood Pressure Screening Quality Measure: Screening for High Blood Pressure and Follow-Up Documented Does Patient Have Any of the Following: Active Dx of HTN Blood Pressure Classification: Pre-Hypertensive BP Reading Systolic Measurement: 120 Diastolic Measurement: 77 Screening for High Blood Pressure: Patient Exclusion, Hx of HTN [G9744] - Atrial Fibrillation and Atrial Flutter Quality Measure: Atrial Fibrillation & Atrial Flutter: Chronic Anticoagulation Therapy Does Patient Have Any of the Following: No CHADS2 Risk Stratification: Age 75 or Greater, Hypertension Risk Stratification Summary: One or more high risk factors OR more than one moderate risk factor exists. [G8972] Anticoagulation Therapy: <Oral anticoagulant Prescribed> [G8967] - Advance Directives Quality Measure: Measure #47: Care Plan Advance Directives Established: Yes Advance Directives Information Provided To Patient: No Advance Directives on File: No Living Will: No Power of Student Affairs Vice President: Yes (HARSHAL CULLEN) Advance Care Planning: <Care Plan/Decision Maker Documented; Discussed & Documented> [2433F] - Elder Abuse Suspicion Index Screening: Elder Abuse Suspicion Index Screening Rely on people for bathing, dressing, shopping, banking, etc: No Prevented from getting food, clothes, medication, etc: No Made to feel shamed or threatened by someone: No Forced to sign papers or use money against will: No Feel afraid, touched in ways not wanted or hurt physically: Did Not Answer Poor eye contact, withdrawn, malnourished, cuts or bruises: Did Not Answer Screening Result: Negative result EASI Reference Information: Rehan DIAZ, Steven C, Michelle D, Master Card.Development and validation of a tool to assist physicians identification of elder abuse: The Elder Abuse Suspicion Index (EASI ). Journal of Elder Abuse and Neglect, 2008; 20 (3): 276-300. - Elder Maltreatment Screen Quality Measures: Elder Maltreatment Screen and Follow-Up Plan Elder Maltreatment Screen: <Negative, No Follow-Up Plan Required> [G8734]
--- NOTE | 2016-12-10 13:39 | Physical Therapy Tx Note ---
Physical Therapy Tx Note - Treatment Note Tolerated: Good Total Time Spent With Patient: 25 Physical Therapy Tx Note: Detail (The patient was sleeping in bed when PT arrived but easily awoken. The patient ambulated with 5 L of O2 and no assistive device with CG for safety a distance of 60 feet x 1. The patient had complaints of low back and shoulder pain. The patient completed low back exercises including anterior/posterior tilt, prayer stretch, shoulder circles, scapular squeezes, diaphramtic breathing, 5 - 10 reps, seated marching, LAQ x 10 reps. The patient had some complaints of fatigue following treatment.) Physical Therapy Problem List: Detail (1) Moderate risk for fall as measured by Tinetti Balance Assessment Tool. 2) Decreased ability to complete sustained physical activity.) Physical Therapy Goals: 1) Improve the patient's balance using the Tinetti Assessment Tool by 3 to 4 points. 2) The patient will ambulate with or without assistive device community distances with normal gait pattern. 3) The patient will tolerate 20 to 30 minutes of physical activity with one rest period. Physical Therapy Plan: PT one time a day M-F for ambulation , muscular endurance exercises and balance exercises.
== END 2016-12-10 14:13 | disposition swing bed (61) | DRG 181 ==
LOC: ER 04:35 → MEDSURG 07:25 → OBSVTOIN 07:25 → MEDSURG 12-07 07:55
PROVIDERS: ADMIT Family Medicine; ATTEND Family Medicine
DX: R10.11 Right upper quadrant pain (principal); C34.32 Malignant neoplasm of lower lobe, left bronchus or lung; C77.3 Secondary and unspecified malignant neoplasm of axilla and upper limb lymph nodes; R91.1 Solitary pulmonary nodule; I48.2 Chronic atrial fibrillation; Z79.01 Long term (current) use of anticoagulants; F32.9 Major depressive disorder, single episode, unspecified; J44.9 Chronic obstructive pulmonary disease, unspecified; E78.00 Pure hypercholesterolemia, unspecified; Z78.9 Other specified health status
CPT/HCPCS: 83605; 83690; 85025; 80053; 74177; 93005; 93010; Q9967; J2405; J2270; 71010; 76700; 80051; 82553; 84484; 85027; 93041; 94620; 94640; 94760; 94761; 96374; 96375; 97110; 97165; 97530; 99223; 99232; 99239; 99285; J7030

== ENCOUNTER 2016-12-10 06:20 | Inpatient (IN) | payer MEDICARE ==
[2016-12-10] MEDS ORDERED: HYDROCODONE/APAP 5/325MG TABLET PO PRN (15:32)
[2016-12-10] MEDS ORDERED: FLU VAC QS 2017-18 (INPT, 6MO+) 60MCG/0.5ML IM ONE (18:31)
[2016-12-10] MEDS: MORPHINE SULFATE 15 MG TABLET.ER PO SCH (21:54)
[2016-12-10] MEDS: METOPROLOL SUCC 25 MG TAB.ER PO SCH (21:54)
[2016-12-11] MEDS: PANTOPRAZOLE SODIUM 40 MG TABLET PO SCH (06:04)
[2016-12-11] MEDS: SPIRIVA INH SCH (10:31)
[2016-12-11] MEDS: AMIODARONE HCL 200 MG TABLET PO SCH (10:42)
[2016-12-11] MEDS: MORPHINE SULFATE 15 MG TABLET.ER PO SCH ×2 (10:42→21:53)
[2016-12-11] MEDS: ATORVASTATIN 20 MG TABLET PO SCH (10:42)
[2016-12-11] MEDS: AMLODIPINE BESYLATE 5MG TAB PO SCH (10:42)
[2016-12-11] MEDS: RIVAROXABAN 15 MG TABLET PO SCH (10:42)
[2016-12-11] MEDS: METOPROLOL SUCC 25 MG TAB.ER PO SCH (21:53)
[2016-12-12] MEDS: PANTOPRAZOLE SODIUM 40 MG TABLET PO SCH (06:20)
[2016-12-12] MEDS: MORPHINE SULFATE 15 MG TABLET.ER PO SCH ×2 (10:10→21:20)
[2016-12-12] MEDS: RIVAROXABAN 15 MG TABLET PO SCH (10:11)
[2016-12-12] MEDS: ATORVASTATIN 20 MG TABLET PO SCH (10:12)
[2016-12-12] MEDS: AMLODIPINE BESYLATE 5MG TAB PO SCH (10:12)
[2016-12-12] MEDS: AMIODARONE HCL 200 MG TABLET PO SCH (10:12)
[2016-12-12] MEDS: SPIRIVA INH SCH (10:15)
[2016-12-12] MEDS: METOPROLOL SUCC 25 MG TAB.ER PO SCH (21:19)
[2016-12-13] MEDS: PANTOPRAZOLE SODIUM 40 MG TABLET PO SCH (06:47)
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
[2016-12-13] MEDS: SPIRIVA INH SCH (10:11)
[2016-12-13] MEDS: MORPHINE SULFATE 15 MG TABLET.ER PO SCH ×2 (11:07→21:39)
[2016-12-13] MEDS: ATORVASTATIN 20 MG TABLET PO SCH (11:07)
[2016-12-13] MEDS: RIVAROXABAN 15 MG TABLET PO SCH (11:08)
[2016-12-13] MEDS: AMLODIPINE BESYLATE 5MG TAB PO SCH (11:08)
[2016-12-13] MEDS: AMIODARONE HCL 200 MG TABLET PO SCH (11:09)
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
[2016-12-13] MEDS: METOPROLOL SUCC 25 MG TAB.ER PO SCH (21:40)
[2016-12-14] MEDS: PANTOPRAZOLE SODIUM 40 MG TABLET PO SCH (06:10)
--- NOTE | 2016-12-14 08:47 | Occupational Therapy Tx Note ---
Occupational Therapy Tx Note - Treatment Note Tolerated: Fair Total Time Spent With Patient: 30 (ADL) Occupational Therapy Treatment Note: Detail (S: Pt resting in bed, ready for shower. O: Pt on 4 liters of oxygen. Supine to sit Indly, amb to toilet and completed toileting Indly. Doffed t-shirt, PJ bottoms and slippers Indly in sitting and standing. Pt completed showering in standing without oxygen. Pt dried self Indly. Donned t-shirt, underpants and slippers Indly. Pt amb back to bed Indly. Sit to supine Indly. Pt was very short of breath during treatment and was able to perform pursed lip breathing. A: Very short of breath and fatigued with activity, Ind with showering and dressing) Occupational Therapy Problem List: Detail (1. Decreased Ind with showering. 2. Decreased Ind with total body dressing 3. Decreased endurance needed for safe and Ind ADLs/IADLs.) Occupational Therapy Goals: 1. Pt will be Ind with showering in sitting or standing. 2. Pt will be Ind with total body dressing 3. Pt will participate in therapeutic activities to improve functional endurance needed to return home Indly. Prognosis: Good Occupational Therapy Plan: OT 2-4 days per week to address endurance, ADLs/ IADLs to allow safe and Ind return home.
[2016-12-14] MEDS: SPIRIVA INH SCH (09:50)
[2016-12-14] MEDS: RIVAROXABAN 15 MG TABLET PO SCH (10:40)
[2016-12-14] MEDS: AMIODARONE HCL 200 MG TABLET PO SCH (10:40)
[2016-12-14] MEDS: AMLODIPINE BESYLATE 5MG TAB PO SCH ×2 (10:40→11:03)
[2016-12-14] MEDS: MORPHINE SULFATE 15 MG TABLET.ER PO SCH ×3 (10:40→22:02)
[2016-12-14] MEDS: ATORVASTATIN 20 MG TABLET PO SCH (10:41)
[2016-12-14] MEDS: ALBUTEROL HFA 8 GM INHALER INH PRN (11:24)
--- NOTE | 2016-12-14 14:58 | Physical Therapy Tx Note ---
Physical Therapy Tx Note - Treatment Note Tolerated: Good Total Time Spent With Patient: 35 Physical Therapy Tx Note: Detail (Patient was sleeping in bed upon ASSISTANT FOOTBALL COACH arrival. Patient states doing well today. Patient transferred sidelying to sit independently. Patient transferred sit to and from stand SBA x1. Patient ambulated 131 feet x2 with 2L portable oxygen CGA x1. Patient transferred sit to and from stand SBA x1. Patient performed the following exercises x10 reps each: seated marching, LAQ, seated heel raises, seated toe raises, hamstring curls with yellow theraband, seated hip abduction with yellow theraband, seated isometric hip adduction, glut squeezes, abdominal isometrics, shoulder extension with yellow theraband, rowing with yellow theraband, shoulder external rotation with yellow theraband, and bicep curls with yellow theraband. Patient tolerated treatment well. Patient required seated and standing rest breaks with ambulation due to shortness of breath. Patient reports fatigued after treatment. Patient was left seated on edge of bed with call light within reach.) Physical Therapy Problem List: Detail (1) Moderate risk for fall as measured by Tinetti Balance Assessment Tool 2) Decreased ability to complete sustained physical activity.) Physical Therapy Goals: 1) Improve the patient's balance using the Tinetti Assessment Tool by 3 to 4 points to improve stability of gait. 2) The patient will ambulate with or without device community distances with normal gait pattern. 3) The patient will tolerate 20 to 30 minutes of physical activity with one rest period. Prognosis: Good Physical Therapy Plan: PT 1-2 times a day for transfer training, bed mobility, gait training, LE strengthening and balance exercises.
[2016-12-14] MEDS: METOPROLOL SUCC 25 MG TAB.ER PO SCH (22:01)
[2016-12-15] MEDS: PANTOPRAZOLE SODIUM 40 MG TABLET PO SCH (06:41)
[2016-12-15] MEDS: NITROGLYCERIN 2% OINT 1GM PKT TOP SCH ×2 (09:11→21:32)
[2016-12-15] MEDS: AMLODIPINE BESYLATE 5MG TAB PO SCH (09:21)
[2016-12-15] MEDS: RIVAROXABAN 15 MG TABLET PO SCH (09:26)
[2016-12-15] MEDS: MORPHINE SULFATE 15 MG TABLET.ER PO SCH ×2 (09:26→21:26)
[2016-12-15] MEDS: ATORVASTATIN 20 MG TABLET PO SCH (09:27)
[2016-12-15] MEDS: AMIODARONE HCL 200 MG TABLET PO SCH (09:27)
[2016-12-15] MEDS: ALBUTEROL HFA 8 GM INHALER INH PRN (09:31)
[2016-12-15] MEDS: SPIRIVA INH SCH (09:35)
--- NOTE | 2016-12-15 10:43 | Occupational Therapy Tx Note ---
Occupational Therapy Tx Note - Treatment Note Tolerated: Good Total Time Spent With Patient: 20 (ADL) Occupational Therapy Treatment Note: Detail (S: Pt reports his chest pain is better than earlier. O: Supine to sit Indly. Amb to bathroom with 4 liters of oxygen Indly. Pt doffed t shirt Indly. Pt completed shaving and washing face while standing at sink Indly with mild shortness of breath. Pt amb back to EOB and donned t shirt Indly. Combed hair Indly. Sit to supine Indly. A: Ind with shaving, grooming and functional mobility. Shortness of breath continues with activity.) Occupational Therapy Problem List: Detail (1. Decreased Ind with showering. 2. Decreased Ind with total body dressing 3. Decreased endurance needed for safe and Ind ADLs/IADLs.) Occupational Therapy Goals: 1. Pt will be Ind with showering in sitting or standing. 2. Pt will be Ind with total body dressing 3. Pt will participate in therapeutic activities to improve functional endurance needed to return home Indly. Prognosis: Good Occupational Therapy Plan: OT 2-4 days per week to address endurance, ADLs/ IADLs to allow safe and Ind return home.
--- NOTE | 2016-12-15 13:15 | Physical Therapy Tx Note ---
Physical Therapy Tx Note - Treatment Note Tolerated: Good Physical Therapy Tx Note: Detail (The patient was in bed when PT arrived.) Physical Therapy Problem List: Detail (1) Moderate risk for fall as measured by Tinetti Balance Assessment Tool 2) Decreased ability to complete sustained physical activity.) Physical Therapy Goals: 1) Improve the patient's balance using the Tinetti Assessment Tool by 3 to 4 points to improve stability of gait. 2) The patient will ambulate with or without device community distances with normal gait pattern. 3) The patient will tolerate 20 to 30 minutes of physical activity with one rest period. Physical Therapy Plan: PT 1-2 times a day for transfer training, bed mobility, gait training, LE strengthening and balance exercises.
--- NOTE | 2016-12-15 14:05 | Physical Therapy Tx Note ---
Physical Therapy Tx Note - Treatment Note Tolerated: Good Total Time Spent With Patient: 30 Physical Therapy Tx Note: Detail (The patient was in bed when PT arrived. The patient ambulated 115 feet x 2 without assistive device with 4L of O2 with supervision for safety only. The patient completed standing balance exercises including standing with varying bases of support and standing on foam surface, reaching and stacking cones in standing, seated LE strengthening exercises: hip adductor squeezes, resistive hip abduction, marching and LAQ all x 10 reps. The patient tolerated treatment well with less unsteadiness noted with ambulation.) Physical Therapy Problem List: Detail (1) Moderate risk for fall as measured by Tinetti Balance Assessment Tool 2) Decreased ability to complete sustained physical activity.) Physical Therapy Goals: 1) Improve the patient's balance using the Tinetti Assessment Tool by 3 to 4 points to improve stability of gait. 2) The patient will ambulate with or without device community distances with normal gait pattern. 3) The patient will tolerate 20 to 30 minutes of physical activity with one rest period. Physical Therapy Plan: PT 1-2 times a day for transfer training, bed mobility, gait training, LE strengthening and balance exercises.
[2016-12-15 15:16] LABS: TROPONIN I < 0.30 ng/mL (0.00-0.300)
[2016-12-15] MEDS: METOPROLOL SUCC 25 MG TAB.ER PO SCH (21:25)
[2016-12-16] MEDS: PANTOPRAZOLE SODIUM 40 MG TABLET PO SCH (06:17)
[2016-12-16] MEDS: SPIRIVA INH SCH (09:05)
[2016-12-16] MEDS: AMLODIPINE BESYLATE 5MG TAB PO SCH (10:03)
[2016-12-16] MEDS: NITROGLYCERIN 2% OINT 1GM PKT TOP SCH ×2 (10:03→21:27)
[2016-12-16] MEDS: RIVAROXABAN 15 MG TABLET PO SCH (10:14)
[2016-12-16] MEDS: MORPHINE SULFATE 15 MG TABLET.ER PO SCH ×2 (10:14→21:24)
[2016-12-16] MEDS: ATORVASTATIN 20 MG TABLET PO SCH (10:14)
[2016-12-16] MEDS: AMIODARONE HCL 200 MG TABLET PO SCH (10:14)
[2016-12-16] MEDS: METOPROLOL SUCC 25 MG TAB.ER PO SCH (21:25)
[2016-12-17] MEDS: PANTOPRAZOLE SODIUM 40 MG TABLET PO SCH (06:05)
[2016-12-17] MEDS: SPIRIVA INH SCH (09:09)
[2016-12-17] MEDS: NITROGLYCERIN 2% OINT 1GM PKT TOP SCH ×2 (10:24→22:39)
[2016-12-17] MEDS: AMIODARONE HCL 200 MG TABLET PO SCH (10:24)
[2016-12-17] MEDS: MORPHINE SULFATE 15 MG TABLET.ER PO SCH ×2 (10:24→22:41)
[2016-12-17] MEDS: RIVAROXABAN 15 MG TABLET PO SCH (10:24)
[2016-12-17] MEDS: ATORVASTATIN 20 MG TABLET PO SCH (10:24)
[2016-12-17] MEDS: AMLODIPINE BESYLATE 5MG TAB PO SCH (10:25)
--- NOTE | 2016-12-17 10:28 | Occupational Therapy Tx Note ---
Occupational Therapy Tx Note - Treatment Note Occupational Therapy Treatment Note: Detail (Pt refusing OT this am, he is waiting for respiratory and he is having stomach discomfort.) Occupational Therapy Problem List: Detail (1. Decreased Ind with showering. 2. Decreased Ind with total body dressing 3. Decreased endurance needed for safe and Ind ADLs/IADLs.) Occupational Therapy Goals: 1. Pt will be Ind with showering in sitting or standing. 2. Pt will be Ind with total body dressing 3. Pt will participate in therapeutic activities to improve functional endurance needed to return home Indly. Occupational Therapy Plan: OT 2-4 days per week to address endurance, ADLs/ IADLs to allow safe and Ind return home.
--- NOTE | 2016-12-17 13:14 | Physical Therapy Tx Note ---
Physical Therapy Tx Note - Treatment Note Physical Therapy Tx Note: Detail (The patient refused PT treatments. Home exercise program and home safety for fall prevention was reviewed.) Physical Therapy Problem List: Detail (1) Moderate risk for fall as measured by Tinetti Balance Assessment Tool 2) Decreased ability to complete sustained physical activity.) Physical Therapy Goals: 1) Improve the patient's balance using the Tinetti Assessment Tool by 3 to 4 points to improve stability of gait. 2) The patient will ambulate with or without device community distances with normal gait pattern. 3) The patient will tolerate 20 to 30 minutes of physical activity with one rest period. Physical Therapy Plan: PT 1-2 times a day for transfer training, bed mobility, gait training, LE strengthening and balance exercises.
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
[2016-12-17] MEDS: METOPROLOL SUCC 25 MG TAB.ER PO SCH (22:42)
[2016-12-18] MEDS: PANTOPRAZOLE SODIUM 40 MG TABLET PO SCH (08:29)
[2016-12-18] MEDS: NITROGLYCERIN 2% OINT 1GM PKT TOP SCH (08:30)
[2016-12-18] MEDS ORDERED: AL HYDROX/MAG HYDROX 30ML UD PO PRN (08:30)
--- NOTE | 2016-12-18 09:14 | Discharge Summary ---
Providers Date of admission: 12/10/16 14:29 Expected Date of Discharge: 12/18/16 Attending physician: Silvio Rosado Primary care physician: CASSIE JACKSON D.O. Physical Exam - Vital Signs Vital Signs: Vital Signs - Last 24 Hrs Temp Pulse Resp BP Pulse Ox 12/17/16 10:00 98.3 F 108 H 20 106/69 91 L - General General Appearance: Alert, Oriented x3, Cooperative, No acute distress Limitations: No limitations - Head Head exam: Normal inspection Head exam detail: negative: Abrasion, Contusion - Eye Eye exam: Normal appearance, PERRL Pupils: Normal accommodation - ENT ENT exam: Normal exam, Mucous membranes moist, Normal external ear exam, Normal orophraynx, TM's normal bilaterally Ear exam: Normal external inspection. negative: External canal tenderness Nasal Exam: Normal inspection. negative: Discharge, Sinus tenderness Mouth exam: Normal external inspection, Tongue normal Teeth exam: Normal inspection. negative: Dental caries Throat exam: Normal inspection. negative: Tonsillar erythema, Tonsillar exudate - Neck Neck exam: Normal inspection, Full ROM. negative: Tenderness - Respiratory Respiratory exam: Decreased breath sounds. negative: Respiratory distress - Cardiovascular Cardiovascular Exam: Normal heart sounds, Irregular rhythm - GI/Abdominal GI/Abdominal exam: Soft, Normal bowel sounds, Tenderness (abdominal pain with coughing) - Rectal Rectal exam: Deferred - exam: Deferred - Extremities Extremities exam: Normal inspection, Full ROM, Normal capillary refill. negative: Tenderness - Back Back exam: Reports: Normal inspection, Full ROM. Denies: Muscle spasm, Rash noted, Tenderness - Neurological Neurological exam: Alert, Normal gait, Oriented X3, Reflexes normal - Psychiatric Psychiatric exam: Normal affect, Normal mood - Skin Skin exam: Dry, Intact, Normal color, Warm Hospitalization - Hospitalization Admission Diagnosis: deconditioning. lung adenocarcimoa new diagnosis. atrial fibrillation on xarelto. COPD. hypoxia and on oxygen 4 liters per minute. hyercholesterol. Ex tobacco use stopped Dec 05 2016. Abdominal pain resolved - Hospitalization Course Procedures: Cardiology Procedures 12/15/16 08:48 EKG NOW Discharge Medications - Discharge Medications Prescriptions: Albuterol Sulfate [Ventolin Hfa] 2 puff INH RESP.Q4H PRN #1 inhaler PRN Reason: Wheezing Amlodipine Besylate 5 mg PO DAILY #30 tab Morphine Sulfate [Ms Contin] 15 mg PO Q12H #60 tab.er Pantoprazole Sodium [Protonix] 40 mg PO DAILYAC #30 Home Medications: Ambulatory Orders Metoprolol Succinate [Toprol Xl] 12.5 mg PO QHS #30 tab.er.24h 05/21/14 [Last Taken 1 Day Ago ~01/23/15] Tiotropium [place] [Spiriva] 1 cap INH RESP.DAILY cap.w.dev 01/28/15 [Last Taken Unknown] Atorvastatin Calcium 40 mg PO DAILY 11/26/16 [Last Taken Unknown] Amiodarone HCl [Pacerone] 200 mg PO BID 12/06/16 [Last Taken Unknown] Rivaroxaban [Xarelto] 15 mg PO DAILY 12/06/16 [Last Taken Unknown] Albuterol Sulfate [Ventolin Hfa] 2 puff INH RESP.Q4H PRN #1 inhaler 12/18/16 [ Last Taken Unknown] Amiodarone HCl [Pacerone] 200 mg PO DAILY 12/18/16 [Last Taken Unknown] Amlodipine Besylate 5 mg PO DAILY #30 tab 12/18/16 [Last Taken Unknown] Metoprolol Succinate [Toprol Xl] 12.5 mg PO QHS tab.er.24h 12/18/16 [Last Taken Unknown] Morphine Sulfate [Ms Contin] 15 mg PO Q12H #60 tab.er 12/18/16 [Last Taken Unknown] Pantoprazole Sodium [Protonix] 40 mg PO DAILYAC #30 12/18/16 [Last Taken Unknown] Rivaroxaban [Xarelto] 15 mg PO DAILY 12/18/16 [Last Taken Unknown] Discharge Plan - Discharge Instructions Activity at Discharge: Increase Activity as Tolerated Diet at Discharge: Regular Diet Additional Instructions: [facility] will be providing your home oxygen: [facility] will be sending a nurse, and physical and occupational therapists to work with you at home. They are available by phone 18/10: You have been referred to [facility] through the [facility] Office on Aging. They will contact you to schedule an in-home assessment. [phone] Jackson in 7-10 days follow up with oncology on as scheduled with Dr. Hubbard home oxygen at 4 liters per minute Quality Measures - Quality Measures Quality Measures: Atrial Fibrillation & Atrial Flutter: Chronic Anticoagulation Therapy, Advance Directives, Documentation of Current Medications in Medical Record, Elder Maltreatment Screen and Follow-Up Plan, Screening for High Blood Pressure and F/U Documented - Current Medications Quality Measure: Measure #130: Documentation of Current Medications Documentation of Current Medications: <Current Medications Documented/Reviewed> [C8082] - Blood Pressure Screening Quality Measure: Screening for High Blood Pressure and Follow-Up Documented Does Patient Have Any of the Following: Active Dx of HTN Blood Pressure Classification: Normal BP Reading Systolic Measurement: 91 Diastolic Measurement: 58 Screening for High Blood Pressure: Patient Exclusion, Hx of HTN [G9744] - Atrial Fibrillation and Atrial Flutter Quality Measure: Atrial Fibrillation & Atrial Flutter: Chronic Anticoagulation Therapy Does Patient Have Any of the Following: No CHADS2 Risk Stratification: Age 75 or Greater, Hypertension Risk Stratification Summary: One or more high risk factors OR more than one moderate risk factor exists. [G8972] Anticoagulation Therapy: <Oral anticoagulant Prescribed> [V8967] - Advance Directives Quality Measure: Measure #47: Care Plan Advance Directives Established: Yes Advance Directives Information Provided To Patient: No Advance Directives on File: No Living Will: No Power of Curtain Inspector: Yes (HARSHAL CULLEN) Advance Care Planning: <Care Plan/Decision Maker Documented; Discussed & Documented> [4503C] - Elder Abuse Suspicion Index Screening: Elder Abuse Suspicion Index Screening Rely on people for bathing, dressing, shopping, banking, etc: No Prevented from getting food, clothes, medication, etc: No Made to feel shamed or threatened by someone: No Forced to sign papers or use money against will: No Poor eye contact, withdrawn, malnourished, cuts or bruises: No Screening Result: Negative result EASI Reference Information: Rehan DIAZ, Steven C, Michelle D, Master M.Development and validation of a tool to assist physicians identification of elder abuse: The Elder Abuse Suspicion Index (EASI ). Journal of Elder Abuse and Neglect, 2008; 20 (3): 276-300. - Elder Maltreatment Screen Quality Measures: Elder Maltreatment Screen and Follow-Up Plan Elder Maltreatment Screen: <Negative, No Follow-Up Plan Required> [G8778]
[2016-12-18] MEDS: SPIRIVA INH SCH (09:44)
[2016-12-18] MEDS: AMIODARONE HCL 200 MG TABLET PO SCH (10:06)
[2016-12-18] MEDS: RIVAROXABAN 15 MG TABLET PO SCH (10:06)
[2016-12-18] MEDS: ATORVASTATIN 20 MG TABLET PO SCH (10:06)
[2016-12-18] MEDS: MORPHINE SULFATE 15 MG TABLET.ER PO SCH (10:06)
[2016-12-18] MEDS: AMLODIPINE BESYLATE 5MG TAB PO SCH (10:06)
--- NOTE | 2016-12-20 12:21 | Discharge Summary ---
DATE: 12/18/2016 DISCHARGE DIAGNOSES: 1. 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 2. Atrial fibrillation, on Xarelto. 3. Chronic obstructive pulmonary disease. 4. Hypoxia, using 4L/min nasal cannula. This is new for him. He did not require oxygen before this hospitalization. 5. Deconditioning, which has improved. He is walking around the room but he still has episodes of nausea, especially when he is eating and he gags very easily. 6. Pain control with MS Contin 15 mg twice a day. I talked to him about maybe going to once a day. With less narcotics, his nausea might be slightly better. 7. History of hypercholesterolemia. 8. History of hypertension. ATTENDING PHYSICIAN: Silvio Rosado DO REASON FOR HOSPITALIZATION: The patient was admitted to [facility] with episodes of nausea, vomiting, and recent diagnosis of lung cancer, adenocarcinoma. He was treated with MS Contin. He also had some abdominal pain and chest pain. Cardiac labs were negative for an [place]. He does have atrial fibrillation. He was felt to be too weak to go home with his diagnosis. He required oxygen, which is new for him. He was put into the swing bed program for conditioning, which he has gradually improved since 12/10/2016. So, he has been in our swing bed program for about 8 days. SIGNIFICANT FINDINGS: He did have one set of cardiac enzymes during his hospitalization including one episode of chest pain which was negative. It appeared to be more musculoskeletal in nature, worse when he moved his shoulders. He did get some nitroglycerin paste, which seemed to also help, but his blood pressure was running low and that was stopped. He had an EKG showing left bundle branch block. No acute ST-T-wave changes. THERAPY PROVIDED: He was given physical therapy and occupational therapy and gradually improved. He was also educated about the use of oxygen. His morphine sulfate was MS Contin 15 twice a day. He says he is not in a lot of pain. This probably can be titrated back. His Norvasc was decreased to 5 mg because his blood pressure was running low. A prescription will be given to him for that. CONDITION ON DISCHARGE: Improved but guarded because of his comorbid condition. DISCHARGE INSTRUCTIONS: Follow up with Dr. Reid in 7-10 days. Follow up with his oncology department, Dr. Collazo, on Tuesday, which is 3 days away. He just had a PET scan and the results are not on the chart. HOME MEDICATIONS: 1. He is going to be discharged on oxygen 4L per minute nasal cannula. 2. MS Contin 15 mg b.i.d. 3. Toprol-XL 12.5 mg daily. 4. Protonix 40 mg daily. 5. Tums 2-3 after meals and at bedtime for nausea and gagging. 6. Lipitor 40 mg daily. 7. Pacerone 200 mg daily. 8. Norvasc switching it down to 5 mg daily. 9. Spiriva inhaler 1 puff once a day. 10. Xarelto 50 mg daily. 11. Ventolin inhaler 2 puffs q.4 h. CC: Dr. Jeanette GARZA
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
== END 2016-12-18 11:40 | disposition home health service (06) | DRG 948 ==
LOC: UNDOADMIN 14:29 → MEDSURG 14:29
PROVIDERS: ADMIT Emergency Medicine; ATTEND Emergency Medicine
DX: R53.1 Weakness (principal); C34.02 Malignant neoplasm of left main bronchus; E78.00 Pure hypercholesterolemia, unspecified; I48.2 Chronic atrial fibrillation; Z79.01 Long term (current) use of anticoagulants; I10 Essential (primary) hypertension; J44.9 Chronic obstructive pulmonary disease, unspecified; Z87.891 Personal history of nicotine dependence; Z99.81 Dependence on supplemental oxygen
CPT/HCPCS: 82553; 84484; 90686; 93005; 94620; 94640; 94760; 97110; 97165; 97530; 97535; 99236; 99316